=== PATIENT | male | born 1965 | race African-American/Black ===

== ENCOUNTER 2021-12-29 08:19 | Emergency (ER) | payer OTHER, BC ==
[2021-12-29 08:36] VITALS: BP 131/79; PULSE 52; RESP 18; TEMP 97.9; BMI 30.7
[2021-12-29] MEDS ORDERED: NAPROXEN 500 MG TABLET PO ONE (10:33)
[2021-12-29] MEDS ORDERED: NAPROXEN 500 MG TABLET ONE ×2 (10:37→12:22)
[2021-12-29 11:34] LABS: ALBUMIN 3.7 g/dl (3.4-5.0); BLOOD UREA NITROGEN 17.2 mg/dL (7-18); CALCIUM 9.4 mg/dL (8.5-10.1)
[2021-12-29 11:37] LABS: CREATININE 1.5 mg/dL (0.55-1.3); URIC ACID 7.7 mg/dL (2.6-7.2)
[2021-12-29 11:39] LABS: BASO % 0.4 % (0-2.0); BILIRUBIN,TOTAL 0.8 mg/dL (0.2-1); EOS % 1.4 % (0-4.5); HEMATOCRIT 37.8 % (35.4-49); HEMOGLOBIN 12.3 GM/dL (11.7-16.9); MCH 30.3 pg (25.7-33.7); MCHC 32.5 g/dl (32.0-35.9); MEAN CELL VOLUME 93.2 fl (80-96); MEAN PLT VOLUME 10.2 fl (7.5-11.1); MONO % 12.6 % (3.8-10.2); NEUT % 67.6 % (42.8-82.8); PLATELET COUNT 228 10^3/uL (134-434); RBC 4.05 M/mm3 (4.00-5.60); RDW 13.2 % (11.9-15.9); TOT PROT 7.8 g/dl (6.4-8.2); WHITE BLOOD COUNT 8.9 K/mm3 (4.0-10.0)
[2021-12-29] MEDS ORDERED: COLCHICINE 0.6 MG TAB PO ONE (12:03)
[2021-12-29] MEDS ORDERED: COLCHICINE 0.6 MG TAB ONE (12:27)
== END 2021-12-29 12:33 | disposition home or self-care (01) ==
LOC: JERFT 08:19
DX: M10.9 Gout, unspecified (principal)
CPT/HCPCS: 36415; 73610-TC-RT-FY; 73630-TC-RT-FY; 80053; 84550; 85025; 99284-25